=== PATIENT | male | born 1990 | race Caucasian/White ===

== ENCOUNTER 2020-09-26 12:28 | Emergency (ER) | payer SELFPAY ==
[2020-09-26] MEDS ORDERED: VISTARIL25 MG PO (13:27)
[2020-09-26] MEDS ORDERED: KENALOG 0.5% CR15 GM EXT (13:27)
== END 2020-09-26 13:45 | disposition home or self-care (01) ==
LOC: ER1 12:28
DX: L23.7 Allergic contact dermatitis due to plants, except food (principal); F17.210 Nicotine dependence, cigarettes, uncomplicated
CPT/HCPCS: 99282